=== PATIENT | female | born 1930 | race Caucasian/White ===

== ENCOUNTER 2017-04-02 09:52 | Emergency (ER) | payer OTHER ==
[~2017-04-02] VITALS: Ht 160 cm; Wt 78.6 kg
[~2017-04-02 09:52] MED LIST: ALENDRONATE SOD70 MG; ASPIRIN81 M1 PO; CALCIUM + D 601 EACH PO; CELEXA20 MG; NITROQUICK0.4 MG SL; ZESTRIL,PRINIVI10 M1
[2017-04-02 11:43] LABS: BASOPHIL COUNT 0.1 K/uL (0-0.1); EOSINOPHIL (%) 3.2 % (0-5); EOSINOPHIL COUNT 0.3 K/uL (0-0.3); HEMATOCRIT 37.5 % (36.0-46.0); IMMATURE GRANULOCYTE (%) 0.2 % (0.0-0.7); INSTRUMENT ABS NEUTROPHIL CT 4.8 K/uL; LYMPHOCYTE COUNT 2.9 K/uL (1.0-2.8); MCH 29.8 PG (29.0-34.0); MCHC 32.3 G/DL (30.0-36.0); MCV 92.4 FL (83-99); MEAN PLAT.VOLUME 10.3 uM^3 (9.5-12.4); MONOCYTE (%) 6.7 % (3-12); MONOCYTE COUNT 0.6 K/uL (0-0.8); NEUTROPHIL (%) 55.8 % (45-76); NEUTROPHIL COUNT 4.8 K/uL (1.8-6.4); PLATELET COUNT 306 K/uL (156-360); RBC DIS.WIDTH-CV 13.5 % (11.8-14.6); RBC DIS.WIDTH-SD 46.3 % (39-53); RED BLOOD COUNT 4.06 M/uL (3.80-5.20); WHITE BLOOD COUNT 8.7 K/uL (4.1-10.2)
[2017-04-02 11:52] LABS: CHLORIDE 105 mEq/L (99-109); POTASSIUM 4.8 mEq/L (3.7-5.4); SODIUM 140 mEq/L (136-147)
[2017-04-02 11:54] LABS: GLUCOSE 94 mg/dL (70-99)
[2017-04-02 11:55] LABS: ANION GAP 9 MEQ/L (2-14)
[2017-04-02 11:57] LABS: GFR ESTIMATE (CALCULATED) > 59 mL/min/
[2017-04-02 11:58] LABS: UREA NITROGEN (BUN) 22 mg/dL (9-23)
[2017-04-02] MEDS ORDERED: KEFLEX500 MG PO (13:17)
[2017-04-02 13:54] VITALS: BP 121/70
== END 2017-04-02 13:56 | disposition home or self-care (01) ==
LOC: EME 09:52
PROVIDERS: Emergency Medicine
DX: L03.032 Cellulitis of left toe (principal); Z98.890 Other specified postprocedural states; Z88.5 Allergy status to narcotic agent; Z88.1 Allergy status to other antibiotic agents; Z88.2 Allergy status to sulfonamides
CPT/HCPCS: 80048; 85025; 99281; 99284; J0696; J7050

== ENCOUNTER 2017-10-04 14:10 | Inpatient (IN) | payer OTHER ==
[~2017-10-04] VITALS: Ht 160 cm; Wt 71.8 kg
[~2017-10-04 14:10] MED LIST changes: +ADULT ASPIRIN R81 MG PO; -ASPIRIN81 M1 PO; -CALCIUM + D 601 EACH PO; +CALCIUM 500 MG1 EACH PO; -CELEXA20 MG; +CELEXA20 MG PO; +KEFLEX500 MG PO; -NITROQUICK0.4 MG SL; +NITROSTAT0.4 MG SL; -ZESTRIL,PRINIVI10 M1; +ZESTRIL40 MG PO
[2017-10-04 15:05] LABS: BASOPHIL (%) 0.8 % (0-1); BASOPHIL COUNT 0.1 K/uL (0-0.1); EOSINOPHIL (%) 0.5 % (0-5); IMMATURE GRANULOCYTE (%) 0.3 % (0.0-0.7); LYMPHOCYTE (%) 11.3 % (15-42); LYMPHOCYTE COUNT 0.7 K/uL (1.0-2.8); MCH 30.5 PG (29.0-34.0); MCHC 34.4 G/DL (30.0-36.0); MCV 88.6 FL (83-99); MONOCYTE (%) 14.7 % (3-12); MONOCYTE COUNT 0.9 K/uL (0-0.8); NEUTROPHIL (%) 72.4 % (45-76); NEUTROPHIL COUNT 4.6 K/uL (1.8-6.4); PLATELET COUNT 253 K/uL (156-360); RBC DIS.WIDTH-CV 13.9 % (11.8-14.6); RBC DIS.WIDTH-SD 45.5 % (39-53); RED BLOOD COUNT 3.61 M/uL (3.80-5.20); WHITE BLOOD COUNT 6.4 K/uL (4.1-10.2)
[2017-10-04 15:15] LABS: ALBUMIN 3.6 g/dL (3.2-4.8)
[2017-10-04 15:16] LABS: CHLORIDE 104 mEq/L (99-109); SODIUM 136 mEq/L (136-147)
[2017-10-04 15:18] LABS: GLUCOSE 121 mg/dL (70-99); TOTAL PROTEIN 6.4 g/dL (6.4-8.3)
[2017-10-04 15:20] LABS: TOTAL BILIRUBIN 0.5 mg/dL (0.0-1.0)
[2017-10-04 15:21] LABS: ALKALINE PHOSPHATASE 47 IU/L (3-129)
[2017-10-04 15:22] LABS: GFR ESTIMATE (CALCULATED) 56 mL/min/
[2017-10-04 15:23] LABS: AST (GOT) 30 IU/L (2-34); UREA NITROGEN (BUN) 16 mg/dL (9-23)
[2017-10-04 15:25] LABS: ALT (GPT) 16 IU/L (3-49)
[2017-10-04] MEDS ORDERED: DAILY VALUE1 EACH PO (17:09)
[2017-10-04] MEDS ORDERED: AMLODIPINE BES2.5 MG PO (17:09)
[2017-10-04] MEDS ORDERED: TYLENOL EXTRA500 MG PO (17:09)
[2017-10-04 21:08] VITALS: BP 140/63
[2017-10-04 23:10] VITALS: BP 119/57
[2017-10-05 03:30] VITALS: BP 126/60
[2017-10-05 06:24] LABS: HEMATOCRIT 31.9 % (36.0-46.0); HEMOGLOBIN 10.4 G/DL (11.9-15.5); MCH 29.3 PG (29.0-34.0); MCHC 32.6 G/DL (30.0-36.0); MCV 89.9 FL (83-99); PLATELET COUNT 233 K/uL (156-360); RBC DIS.WIDTH-CV 14.1 % (11.8-14.6); RBC DIS.WIDTH-SD 46.5 % (39-53); RED BLOOD COUNT 3.55 M/uL (3.80-5.20); WHITE BLOOD COUNT 5.1 K/uL (4.1-10.2)
[2017-10-05 06:41] LABS: CHLORIDE 106 MEQ/L (99-109); CREATININE 0.9 MG/DL (0.6-1.3); GFR ESTIMATE (CALCULATED) > 59 mL/min/; POTASSIUM 3.9 MEQ/L (3.7-5.4); SODIUM 138 MEQ/L (136-147); UREA NITROGEN (BUN) 11 mg/dL (9-23)
[2017-10-05 06:47] LABS: GLUCOSE 89 mg/dL (70-99)
[2017-10-05 07:09] VITALS: BP 124/60
[2017-10-05 10:05] LABS: APPEARANCE SL.HAZY ((CLEAR)); BILIRUBIN NEGATIVE; BLOOD SMALL; COLOR YELLOW ((YELLOW)); GLUCOSE (STRIP) NEGATIVE; KETONES 20; LEUKOCYTES LARGE; NITRITE NEGATIVE; PROTEIN (STRIP) NEGATIVE; SPECIFIC GRAVITY 1.013 (1.000-1.030); UROBILINOGEN 0.2 MG/DL (0.2-1.0)
[2017-10-05 10:11] LABS: BACTERIA RARE /HPF; CALCIUM OXALATE CRYSTALS 1+ /HPF; EPITHELIAL CELLS RARE /HPF; HYALINE CASTS 0-5 /LPF; MUCUS TRACE /LPF; RED BLOOD CELLS 0-5 /HPF (0-5); UCUL ADDED? YES; WHITE BLOOD CELLS 30-40 /HPF (0-5)
[2017-10-05 11:32] VITALS: BP 118/56
[2017-10-05 20:07] VITALS: BP 138/62
[2017-10-06 00:44] VITALS: BP 103/52
[2017-10-06 04:16] VITALS: BP 105/62
[2017-10-06 07:25] VITALS: BP 132/60
[2017-10-06 12:00] VITALS: BP 119/60
[2017-10-06 16:05] VITALS: BP 125/65
[2017-10-06 20:01] VITALS: BP 103/53
[2017-10-07 00:05] VITALS: BP 102/58
[2017-10-07 04:27] VITALS: BP 112/58
[2017-10-07 07:15] VITALS: BP 123/62
[2017-10-07 11:44] LABS: C DIFF TOXIN NEGATIVE (NEGATIVE)
[2017-10-07 23:25] VITALS: BP 133/61
[2017-10-08 09:28] VITALS: BP 124/58
[2017-10-08] MEDS ORDERED: CEFDINIR300 MG PO (13:56)
[2017-10-08] MEDS ORDERED: OSELTAMIVIR PHO30 MG PO (13:57)
[2017-10-08 15:44] VITALS: BP 112/68
== END 2017-10-08 18:17 | DRG 193 ==
LOC: EME 14:10 → 2EAST 18:06 → EDOF 18:06 → ENRESERV 18:13 → 2EAST 20:16 → ENPENDDIS 10-08 → 2EAST 10-08 18:17
PROVIDERS: Emergency Medicine; Hospitalist
DX: J10.1 Influenza due to other identified influenza virus with other respiratory manifestations (principal); R09.02 Hypoxemia; N39.0 Urinary tract infection, site not specified; B96.20 Unspecified Escherichia coli [E. coli] as the cause of diseases classified elsewhere; G82.50 Quadriplegia, unspecified; G31.9 Degenerative disease of nervous system, unspecified; R26.9 Unspecified abnormalities of gait and mobility; R47.81 Slurred speech; E78.5 Hyperlipidemia, unspecified; I10 Essential (primary) hypertension; I73.00 Raynaud's syndrome without gangrene; I87.2 Venous insufficiency (chronic) (peripheral); M81.0 Age-related osteoporosis without current pathological fracture; F32.9 Major depressive disorder, single episode, unspecified; Z66 Do not resuscitate; Z86.711 Personal history of pulmonary embolism; Z99.3 Dependence on wheelchair; Z79.82 Long term (current) use of aspirin; Z88.2 Allergy status to sulfonamides; Z88.1 Allergy status to other antibiotic agents; Z88.5 Allergy status to narcotic agent
CPT/HCPCS: 71046; 80048; 80053; 81003; 83605; 85025; 85027; 87040; 87077; 87086; 87186; 87493; 87502; 92523 GN; 92610 GN; 93005; 94799; 97530 GO; 97530 GP; 99202; 99281; 99285; J1644; J7030